=== PATIENT | male | born 1950 | race Caucasian/White ===

== ENCOUNTER 2019-01-20 15:53 | Observation (INO) | payer MEDICARE ==
[~2019-01-20] VITALS: Ht 182.9 cm; Wt 96.6 kg
[~2019-01-20 15:53] MED LIST: FENTANYL CITRATE/PF 100MCG/2 ML INJ ONE; MIDAZOLAM HCL 2 MG/2 ML VIAL ONE
[2019-01-20] MEDS ORDERED: SODIUM CHLORIDE 0.9% 1000ML 1,000 ML IV STA (16:00)
[2019-01-20] MEDS ORDERED: GLUCAGON FOR INJ 1 MG VIAL IV ONE ×2 (16:00→16:30)
[2019-01-20] MEDS ORDERED: PANTOPRAZOLE 40 MG 10ML VIAL IV ONE (16:15)
[2019-01-20] MEDS ORDERED: ONDANSETRON HCL INJ 2MG/ML 2ML 2 MG/ML VIAL IV ONE (16:30)
[2019-01-20 16:51] LABS: BASOPHILS % 0.3 % (0.0-1.0); EOSINOPHILS # (AUTO) 0.2 (0.0-0.4); EOSINOPHILS % 2.1 % (0.0-6.0); HEMATOCRIT 46.7 % (38.2-49.6); HEMOGLOBIN 16.3 g/dL (14.0-18.0); LYMPHOCYTES # (AUTO) 1.1 (1.0-3.2); LYMPHOCYTES % 12.2 % (18.0-39.1); MEAN CORPUSCULAR HEMOGLOBIN 34.5 pg (28-32); MEAN CORPUSCULAR HGB CONC 34.9 g/dL (31-35); MEAN CORPUSCULAR VOLUME 98.9 fL (81-99); MONOCYTES # (AUTO) 0.7 (0.2-0.8); MONOCYTES % 7.8 % (4.4-11.3); NEUTROPHILS % 77.2 % (38.7-80.0); PLATELET COUNT 292 x10e3/uL (140-360); RED BLOOD COUNT 4.72 x10e6/uL (4.3-5.7); RED CELL DISTRIBUTION WIDTH 12.3 % (11.7-14.4)
[2019-01-20 17:13] LABS: ALANINE AMINOTRANSFERASE 40 IU/L (0-55); ALBUMIN 4.6 g/dL (3.5-5.0); ALBUMIN/GLOBULIN RATIO 1.5 (0.8-2.0); ALKALINE PHOSPHATASE 78 IU/L (40-150); ANION GAP 16.7 mmol/L (8-16); BLOOD UREA NITROGEN 12 mg/dL (7-26); BUN/CREATININE RATIO 13 (6-25); CALCIUM 9.1 mg/dL (8.4-10.2); CARBON DIOXIDE 25 mmol/L (22-29); CHLORIDE 104 mmol/L (98-107); CREATINE KINASE 155 IU/L (30-200); EST GLOMERULAR FILTRATION RATE > 60 ML/MIN (60-); GLUCOSE 101 mg/dL (74-118); LIPASE 33 U/L (8-78); MAGNESIUM 2.4 MG/DL (1.3-2.1); POTASSIUM 3.7 mmol/L (3.5-5.1); SODIUM 142 mmol/L (136-145)
[2019-01-20 17:15] LABS: INR 0.94; PROTHROMBIN TIME 13.1 seconds (11.9-14.5)
[2019-01-20 17:16] LABS: PARTIAL THROMBOPLASTIN TIME 30.5 seconds (23.8-35.5)
[2019-01-20] MEDS ORDERED: LIPITOR20 MG (17:43)
[2019-01-20] MEDS ORDERED: COMBIVENT RESPIM4 GM IH (17:43)
[2019-01-20] MEDS ORDERED: SINGULAIR10 MG (17:43)
[2019-01-20] MEDS ORDERED: ADVAIR 250-501 EACH (17:43)
[2019-01-20] MEDS ORDERED: ASPIR 8181 MG (17:43)
--- NOTE | 2019-01-20 18:15 | Diagnostic Imaging Report ---
EXAMINATION: CHEST 2 VIEWS INDICATION: ^POSSIBLE ESOPHAGEAL FB COMPARISON: None FINDINGS: PA and lateral views TUBES and LINES: None. LUNGS: Lungs are well inflated. There are bibasilar atelectasis. There is no evidence of pneumonia or pulmonary edema. PLEURA: No pleural effusion or pneumothorax. HEART AND MEDIASTINUM: The cardiomediastinal silhouette is unremarkable. BONES AND SOFT TISSUES: No acute osseous lesion. Soft tissues are unremarkable. UPPER ABDOMEN: No free air under the diaphragm. IMPRESSION: No acute thoracic abnormality. No foreign bodies identified. Signed by: Dr. Gomez Albarran M.D. on 01/20/2019 6:12 PM
[2019-01-20] MEDS ORDERED: SODIUM CHLORIDE 0.9% 1000ML 1,000 ML IV SCH ×2 (18:29→23:45)
[2019-01-20] MEDS ORDERED: ONDANSETRON HCL INJ 2MG/ML 2ML 2 MG/ML VIAL IV PRN (18:30)
[2019-01-20] MEDS ORDERED: MORPHINE SULFATE 2 MG/ML SYR 1ML IV PRN (18:30)
[2019-01-20] MEDS ORDERED: MORPHINE SULFATE INJ 4 MG/ML INJ 1ML IV PRN (18:45)
[2019-01-20] MEDS ORDERED: METOCLOPRAMIDE HCL 10 MG/2ML VIAL ONE (18:48)
--- OUTSIDE RECORDS SUMMARY | 2019-01-20 19:15 | XMS REPORT ---
[facility] Address Unknown Phone Unavailable Care Team Providers Care Student Services Representative Name Role Phone Chris BREWER Unavailable Unavailable Problems This patient has no known problems. Allergies, Adverse Reactions, Alerts This patient has no known allergies or adverse reactions. Medications This patient has no known medications. Results Test Description Test Time Test Comments Text Results Atomic Results Result Comments CHEST 2 VIEWS 2019-01-20 18:11:00 [place] [id number] Patient Name: ALLYSSA PERERA MR #: [id number] : 1950 Age/Sex: 68/M Req #: [id number] Adm Physician: Ordered by: JACKELYN BREWER MD Report #: [id number] Location: ER Room/Bed: Procedure: [id number] DX/CHEST 2 VIEWS Exam Date: 01/20/19 Exam Time: 1743 REPORT STATUS: Signed EXAMINATION: CHEST 2 VIEWS INDICATION: POSSIB LE ESOPHAGEAL FB COMPARISON: None FINDINGS: PA and lateral views TUBES and LINES: None. LUNGS: Lungs are well inflated. There are bibasilar atelectasis. There is no evidence of pneumonia or pulmonary edema. PLEURA: No pleural effusion or pneumothorax. HEART AND MEDIASTINUM: The cardiomediastinal silhouette is unremarkable. BONES AND SOFT TISSUES: No acute osseous lesion. Soft tissues are unremarkable. UPPER ABDOMEN: No free air under the diaphragm. IMPRESSION: No acute thoracic abnormality. No foreign bodies identified. Signed by: Dr. Flaquita Albarran M.D. on 01/20/2019 6:12 PM Dictated By: FLAQUITA ALBARRAN MD 11 Transcribed By: DARRICK on 01/20/191811 COPY TO: JACKELYN BREWER MD
[2019-01-20] MEDS ORDERED: PANTOPRAZOLE 40 MG 10ML VIAL ONE (21:14)
[2019-01-20] MEDS ORDERED: SODIUM CHLORIDE 0.9% 50ML 50 ML ONE (21:16)
[2019-01-20] MEDS ORDERED: PANTOPRAZOLE 40 MG 10ML VIAL IV SCH (21:45)
[2019-01-20 22:00] VITALS: BP 126/86
--- NOTE | 2019-01-20 22:00 | NUR ---
Patient received via stretcher from ER accompanied by family members. Admission history obtained and Initial physical assessment performed. Patient is AAO x 4. No complaints of pain. No signs of respiratory distress. Patient oriented to room, call light and plan of care. Fall interventions implemented. Patient instructed to call for assistance when needed. Call light within reach.
[2019-01-20 22:04] VITALS: BP 120/71
--- NOTE | 2019-01-20 22:50 | NUR ---
Patient stated he was feeling fine and wanted to be discharged. Dr. Samira Torres and Dr. Graves notified. Discharge orders received.
[2019-01-20] MEDS ORDERED: SODIUM CHLORIDE 0.9% 1000ML 1,000 ML ONE (22:51)
[2019-01-20] MEDS ORDERED: PANTOPRAZOLE SO40 MG PO (23:24)
[2019-01-20 23:38] VITALS: BP 120/71
--- NOTE | 2019-01-20 23:55 | NUR ---
Patient given discharge instructions with new prescription. Patient verbalized understanding. IV removed from right hand with tip intact. Patient transported by and other family members via private auto. Patient in stable condition. Vital signs WNL.
[2019-01-21] MEDS ORDERED: METOCLOPRAMIDE HCL 10 MG/2ML VIAL IV SCH
--- NOTE | 2019-01-21 01:44 | History and Physical ---
HISTORY: The patient presented to the office with several hours of feeling of food being hung up in his esophagus (his larynx). The patient relates he has had over dozen similar events over the last several years, but has never mentioned these to his physicians and has not been medically evaluated for these. He relates that he is unable to swallow now and has he believes regurgitation and excessive salivation. He has mild discomfort substernal. He denies vomiting or nausea, or shortness of breath. The patient denies headache or visual change. No wheezing or cough. Denies abdominal pain. No diarrhea or bleeding. Denies current urological symptoms. Current neuromuscular history negative per patient. PAST MEDICAL HISTORY: Has included chronic sinusitis, asthma and COPD, low globulins, diverticulitis in 2004, fatty liver, hypolipoproteinemia well controlled with medicines. Last LDL 170. Multicystic thyroid. Last TSH normal recently. Psoriasis. 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 ALLERGIES: THE PATIENT IS ALLERGIC TO PENICILLIN. FAMILY HISTORY: Positive for diabetes and hypertension. PHYSICAL EXAMINATION: VITAL SIGNS: Height 6 feet, weight 212. Blood pressure 150/74, pulse 94, respiratory rate 20, temperature 97.8. HEENT: Pupils, round and reactive. No icterus or pallor. Throat clear. NECK: Supple. PULMONARY: Auscultation is clear. CARDIAC: Sounds S1 and S2 normal. CHEST: Nontender. The patient does frequently appear to expectorate excessive saliva. ABDOMEN: Soft. Bowel sounds are normal. No palpable mass or megaly. EXTREMITIES: Free of edema, clubbing or cyanosis. NEUROLOGIC: DTRs 1+, symmetrical. Babinski negative. Strength good. Sensorium baseline clear. IMPRESSION: Multiple medical illnesses as mentioned above. Current difficulty, possible esophageal foreign body. Rule out other disease. Consider stricture, consider diverticulum. PLAN: Current plans are to assure hydration. GI to see to consider EGD today. Case discussed with ER physician twice. See also initial and followup orders. Luís Graves MD OBI/MODL /[id number]
--- NOTE | 2019-01-21 04:08 | Operative Report ---
DATE OF PROCEDURE: SURGEON: Aram Torres MD PROCEDURE: Esophagogastroduodenoscopy with esophageal dilatation and biopsies. INDICATIONS FOR PROCEDURE: Severe heartburn, ?foreign body in esophagus. MEDICATION: The patient was done under MAC, please see anesthesiologist's note. PROCEDURE IN DETAIL: With the patient in the left lateral decubitus position, flexible fiberoptic Olympus gastroscope was introduced into the esophagus under direct visualization without any difficulty. There were some patchy intense erythema noted in the distal esophagus, but no foreign body was identified. A Schatzki ring was noted at the GE junction and that was dilated to size 50-[place]. The scope was then advanced with ease into the stomach, traversing a small hiatal hernia. Mucosa overlying the antrum and the body revealed some patchy erythema and moderate edema and biopsies were obtained and sent to stain for Helicobacter pylori. There was minute submucosal nodule noted in the antrum and that was biopsied. Pylorus was of normal contour and shape, was intubated with ease and the scope was advanced all the way to the second portion of the duodenum. The scope was then withdrawn slowly. Mucosa overlying the proximal second portion and duodenal bulb appeared to be within normal limits. The scope was then withdrawn back into the stomach and retroflexed and the previously described hiatal hernia was also noted in the retroflexed position. Mucosa overlying the fundus overall appeared to be within normal limits. The scope was then straightened out and it was subsequently withdrawn. The patient tolerated the procedure well. IMPRESSION: 1. Distal esophagitis. 2. Schatzki's ring dilated to size 50-[place]. 3. Small hiatal hernia. 4. Gastritis biopsied, biopsies sent to stain for Helicobacter pylori. 5. Approximately 8 mm submucosal nodule, antrum biopsied. PLAN: Follow up histology. Initiate Protonix 40 mg one p.o. a.c. b.i.d. Aram Torres MD [facility] [place][id number] cc: Luís Graves MD
== END 2019-01-20 23:55 | disposition home or self-care (01) ==
LOC: ER 15:53 → ERHOLD 19:13 → UNDOADMOB 19:13 → ER 19:15 → MED/SURG2 21:29
PROVIDERS: ADMIT Internal Medicine; ATTEND Internal Medicine
DX: K22.2 Esophageal obstruction (principal); K21.9 Gastro-esophageal reflux disease without esophagitis; E78.5 Hyperlipidemia, unspecified; K20.9 Esophagitis, unspecified; K44.9 Diaphragmatic hernia without obstruction or gangrene; K29.70 Gastritis, unspecified, without bleeding; Z83.3 Family history of diabetes mellitus; Z82.49 Family history of ischemic heart disease and other diseases of the circulatory system
CPT/HCPCS: 36415; 43239; 43450; 71046; 80053; 82550; 82553; 82948; 83690; 83735; 84484; 85025; 85610; 85730; 86850; 86900; 88305; 88312; 93005; 99284; C9113; G0378; J1610; J2405; J2765; J7030; J2250

== ENCOUNTER → 2022-11-11 | Outpatient (CLI) | payer MEDICARE ==
[2022-11-05 10:08] LABS: BASOPHILS % 0.5 % (0.0-1.0); EOSINOPHILS # (AUTO) 0.2 (0.0-0.4); EOSINOPHILS % 5.3 % (0.0-6.0); LYMPHOCYTES # (AUTO) 1.1 (1.0-3.2); LYMPHOCYTES % 26.2 % (18.0-39.1); MEAN CORPUSCULAR HEMOGLOBIN 34.2 pg (28-32); MEAN CORPUSCULAR HGB CONC 32.6 g/dL (31-35); MEAN CORPUSCULAR VOLUME 104.8 fL (81-99); MONOCYTES # (AUTO) 0.6 (0.2-0.8); MONOCYTES % 13.2 % (4.4-11.3); NEUTROPHILS # (AUTO) 2.3 (2.1-6.9); NEUTROPHILS % 54.6 % (38.7-80.0); PLATELET COUNT 276 x10e3/uL (140-360); RED BLOOD COUNT 4.39 x10e6/uL (4.3-5.7); RED CELL DISTRIBUTION WIDTH 11.9 % (11.7-14.4)
[~2022-11-11] MED LIST changes: +ACETAMINOPHEN500 MG PO; +ADVAIR 250-501 EACH; +ASPIR 8181 MG; +B12 PO; +CALCIUM WITH M1 EAC1 PO; +COMBIVENT RESPIM4 GM IH; +COQ-1030 MG PO; -FENTANYL CITRATE/PF 100MCG/2 ML INJ ONE; +FISH OIL 1,0001 EAC2 PO; +FLONASE ALLERG9.9 ML INH; +IBUPROFEN200 MG PO; +LIPITOR20 MG; -MIDAZOLAM HCL 2 MG/2 ML VIAL ONE; +MULTIVITAMINS1 EAC8 PO; +NIZORAL SHAMPOO TOP; +OMEPRAZOLE40 MG PO; +PANTOPRAZOLE SO40 MG PO; +PROBIOTICS PO; +SALINE IH; +SINGULAIR10 MG; +SYNALAR TOP; +VALISONE TOP; +VITAMIN D PO
== END ==
LOC: RAD 05:30 → EDSTATUS 07:30
PROVIDERS: ATTEND Internal Medicine Gastroenterology
DX: Z01.810 Encounter for preprocedural cardiovascular examination (principal); Z01.812 Encounter for preprocedural laboratory examination; Z08 Encounter for follow-up examination after completed treatment for malignant neoplasm; Z85.038 Personal history of other malignant neoplasm of large intestine
CPT/HCPCS: 36415; 85025; 93005

== ENCOUNTER → 2023-09-08 | Day surgery (SDC) | payer MEDICARE ==
[2023-09-06 08:57] LABS: BASOPHILS % 0.4 % (0.0-1.0); EOSINOPHILS # (AUTO) 0.3 (0.0-0.4); EOSINOPHILS % 3.5 % (0.0-6.0); HEMATOCRIT 42.6 % (38.2-49.6); MEAN CORPUSCULAR HGB CONC 35.2 g/dL (31-35); MEAN CORPUSCULAR VOLUME 96.6 fL (81-99); MONOCYTES # (AUTO) 0.5 (0.2-0.8); MONOCYTES % 6.1 % (4.4-11.3); NEUTROPHILS # (AUTO) 6.5 (2.1-6.9); NEUTROPHILS % 77.8 % (38.7-80.0); PLATELET COUNT 281 x10e3/uL (140-360); RED BLOOD COUNT 4.41 x10e6/uL (4.3-5.7); RED CELL DISTRIBUTION WIDTH 11.9 % (11.7-14.4); WHITE BLOOD COUNT 8.35 x10e3/uL (4.8-10.8)
[~2023-09-08] MED LIST changes: +AZELASTINE HCL6 ML; +DEXMEDETOMIDINE HCL 200 MCG/2 ML VIAL ONE; +LACTATED RINGER'S 1,000 ML ONE; +LIDOCAINE HCL 2% LOCAL INJ 5 ML SDV VIAL INJ ONE; +PROPOFOL IV EMULSION 10 MG/ML 50 ML VIAL IV ONE
[2023-09-08 08:32] VITALS: TEMP 97.5
[2023-09-08 08:52] VITALS: BP 120/84; PULSE 76; RESP 18; O2SAT 99
== END | disposition home or self-care (01) ==
LOC: OR 06:33
PROVIDERS: ATTEND Internal Medicine Gastroenterology
DX: Z09 Encounter for follow-up examination after completed treatment for conditions other than malignant neoplasm (principal); D12.3 Benign neoplasm of transverse colon; K57.30 Diverticulosis of large intestine without perforation or abscess without bleeding; K64.8 Other hemorrhoids; J45.909 Unspecified asthma, uncomplicated; E78.5 Hyperlipidemia, unspecified; K21.9 Gastro-esophageal reflux disease without esophagitis; Z85.820 Personal history of malignant melanoma of skin; Z01.810 Encounter for preprocedural cardiovascular examination; Z01.812 Encounter for preprocedural laboratory examination; Z79.899 Other long term (current) drug therapy
CPT/HCPCS: 36415; 45385; 85025; 93005; J2001; J2704; J7121; 45378